=== PATIENT | female | born 1980 | race Hispanic/Latino ===

== ENCOUNTER 2021-07-19 11:32 | Emergency (ER) | payer SELFPAY ==
--- NOTE | 2021-07-19 12:03 | ER ---
Nurse's Notes [facility] Name: Debbie Castellon Age: 41 yrs Sex: Female : 1980 Arrival Date: 07/19/2021 Time: 11:40 Bed 20 Private MD: Diagnosis: Cellulitis of right toe Presentation: 07/19 11:55 Chief complaint: Patient states: Nail salon cut right big toe on Saturday, pain and jl7 swelling noted Saturday. Coronavirus screen: At this time, the client does not indicate any symptoms associated with coronavirus-19. Ebola Screen: No symptoms or risks identified at this time. Initial Sepsis Screen: Does the patient meet any 2 criteria? No. Patient's initial sepsis screen is negative. Does the patient have a suspected source of infection? No. Patient's initial sepsis screen is negative. Risk Assessment: Do you want to hurt yourself or someone else? Patient reports no desire to harm self or others. Onset of symptoms was July 17, 2021. 11:55 Method Of Arrival: Ambulatory jl7 11:55 Acuity: GENESIS 4 jl7 Triage Assessment: 11:56 General: Appears in no apparent distress. uncomfortable, Behavior is calm, cooperative, jl7 appropriate for age. Pain: Complains of pain in Right first toenail Pain currently is 9 out of 10 on a pain scale. 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 - Social history:: Smoking status: Patient reports the use of cigarette tobacco products. Screenin:00 Abuse screen: Denies threats or abuse. Denies injuries from another. Nutritional bp screening: No deficits noted. Tuberculosis screening: No symptoms or risk factors identified. Fall Risk None identified. Assessment: 12:00 General: SEE TRIAGE NOTE. bp 12:10 Reassessment: Patient is alert, oriented x 3, equal unlabored respirations, skin aa5 warm/dry/pink. Vital Signs: 11:55 Pulse 93; Resp 15; Temp 97.1; Pulse Ox 100% ; Weight 90.72 kg; Height 5 ft. 1 in. [facility] (154.94 cm); Pain 9/10; 12:10 BP 113 / 82; Pulse 77; Resp 18 S; Pulse Ox 99% on R/A; aa5 11:55 Body Mass Index 37.79 (90.72 kg, 154.94 cm) [facility] ED Course: 11:40 Patient arrived in ED. am2 11:47 [facility] 7 11:47 Thierry Howell MD is Attending Physician. [facility] 11:56 Triage completed. jl7 11:56 Arm band placed on right wrist. 7 12:00 Patient has correct armband on for positive identification. Bed in low position. Call bp light in reach. Side rails up X2. Adult w/ patient. 12:03 Rodrigo Bishop, RN is Primary Nurse. bp 12:12 No provider procedures requiring assistance completed. Patient did not have IV access aa5 during this emergency room visit. Administered Medications: No medications were administered Outcome: 12:03 Discharge ordered by . [facility] 12:10 Discharged to home ambulatory, with family. aa5 12:10 Condition: stable 12:10 Discharge instructions given to patient, Instructed on discharge instructions, follow up and referral plans. medication usage, Demonstrated understanding of instructions, follow-up care, medications, Prescriptions given X 2. 12:12 Patient left the ED. aa5 Signatures: Radha Membreno RN RN aa5 Francis Brenner RN RN vic7 Rose Marie Black am2 Rodrigo Bishop, RN Jing Baker FNP [place] [id number]
--- NOTE | 2021-07-19 12:03 | EDPHYS ---
Physician Documentation [facility] Name: Debbie Castellon Age: 41 yrs Sex: Female : 1980 Arrival Date: 07/19/2021 Time: 11:40 Bed 20 Private MD: ED Physician Thierry Howell HPI: 07/19 11:56 This 41 yrs old Female presents to ER via Unassigned with complaints of right jh7 big toe infection. 11:56 Onset: The symptoms/episode began/occurred 4 day(s) ago. Associated signs and symptoms: jh7 Pertinent positives: redness, swelling, pain. Patient reports that she had her ingrown nail removed at the nail salon on Saturday. Since then she has developed redness, swelling, and tenderness to palpation. She denies fever or any other symptoms.. 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 - Social history:: Smoking status: Patient reports the use of cigarette tobacco products. ROS: 11:56 Constitutional: Negative for fever, chills, and weight loss, Cardiovascular: Negative jh7 for chest pain, palpitations, and edema, Respiratory: Negative for shortness of breath, cough, wheezing, and pleuritic chest pain, Neuro: Negative for headache, weakness, numbness, tingling, and seizure. 11:56 MS/extremity: Positive for erythema, pain, swelling, of the right foot. 11:56 Skin: Positive for erythema, swelling. 11:56 All other systems are negative. Exam: 11:56 Constitutional: This is a well developed, well nourished patient who is awake, alert, jh7 and in no acute distress. Head/Face: Normocephalic, atraumatic. Cardiovascular: Regular rate and rhythm with a normal S1 and S2. No gallops, murmurs, or rubs. Normal PMI, no JVD. No pulse deficits. Respiratory: Lungs have equal breath sounds bilaterally, clear to auscultation and percussion. No rales, rhonchi or wheezes noted. No increased work of breathing, no retractions or nasal flaring. Neuro: Awake and alert, GCS 15, oriented to person, place, time, and situation. Cranial nerves II-XII grossly intact. Motor strength 5/5 in all extremities. Sensory grossly intact. Cerebellar exam normal. Normal gait. 11:56 Musculoskeletal/extremity: ROM: intact in all extremities, Circulation is intact in all extremities. Sensation intact. Mild Erythema, swelling, and tenderness to palpation over the right great toe near the lateral nail border.. Vital Signs: 11:55 Pulse 93; Resp 15; Temp 97.1; Pulse Ox 100% ; Weight 90.72 kg; Height 5 ft. 1 in. jl7 (154.94 cm); Pain 9/10; 12:10 BP 113 / 82; Pulse 77; Resp 18 S; Pulse Ox 99% on R/A; aa5 11:55 Body Mass Index 37.79 (90.72 kg, 154.94 cm) [facility] emergency room MDM: 12:00 Differential diagnosis: R great toe cellulitis, ingrown toenail. Data reviewed: [facility] signs, nurses notes. Data interpreted: Pulse oximetry: is 100 %. Interpretation: normal. 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 ED course: The patient will be prescribed Bactrim and mupirocin. She was advised to do warm Epsom salt soaks at home, and make appointment with a fox farmer. She was educated on signs and symptoms of when to return such as fever, chills, body aches, and increasing redness/streaking, etc. the patient understood the plan of care.. 12:03 Patient medically screened. [facility] Administered Medications: No medications were administered Disposition: 14:53 Co-signature as Attending Physician, Thierry Howell MD. rn Disposition Summary: 07/19/21 12:03 Discharge Ordered Location: [place] [id number] Problem: [facility] Symptoms: are unchanged [facility] Condition: Stable [facility] Diagnosis - Cellulitis of right toe [facility] Followup: [facility] - With: Private Physician - When: 2 - 3 days - Reason: Recheck today's complaints Discharge Instructions: - Discharge Summary Sheet [facility] - Cellulitis, Adult 7 - Fingernail or Toenail Removal, Adult [facility] Forms: - Medication Reconciliation Form [facility] - Thank You Letter [facility] - Antibiotic Education [facility] Prescriptions: - mupirocin 2 % Topical ointment - apply 1 application by TOPICAL route 3 times per day for 10 days; 1 tube; [facility] Refills: 0, Product Selection Permitted - Bactrim DS 800-160 mg Oral Tablet - take 1 tablet by ORAL route every 12 hours for 10 days; 20 tablet; Refills: 0, [facility] Product Selection Permitted Signatures: Thierry Howell MD MD rn Francis Brenner RN RN jl7 Jing Carlin FNP FNP [facility]
[2021-07-19 12:23] VITALS: TEMP 97.1; O2SAT 100
== END 2021-07-19 12:12 | disposition home or self-care (01) ==
LOC: ER 11:32
DX: L03.031 Cellulitis of right toe (principal); Z72.0 Tobacco use
CPT/HCPCS: 99282